=== PATIENT | male | born 1995 | race Caucasian/White ===

== ENCOUNTER 2017-04-11 11:03 | Emergency (ER) | payer OTHER, SELFPAY ==
--- NOTE | 2017-04-11 21:32 | CT ---
CT OF THE BRAIN WITHOUT CONTRAST 04/11/[address] of the brain was performed for evaluation of headache. The ventricles are normal in size w ith no shift. No intracranial bleeding, mass or sign of acute stroke was found. There is a prominent amount of mucosal thickening in sphenoid sinus. A few of the ethmoid air cells posteriorly on the left are involved as well. The findings are consistent with sinusitis, probably c hronic. The other visible paranasal sinuses are clear. The mastoid air cells are clear, though the o loulou on the right are under aerated. IMPRESSION: Findings consistent with sphenoid sinusitis. POS: HOME
== END 2017-04-11 12:39 | disposition home or self-care (01) ==
LOC: BURERS 11:03
DX: J01.90 Acute sinusitis, unspecified (principal); F17.210 Nicotine dependence, cigarettes, uncomplicated
CPT/HCPCS: 70450

== ENCOUNTER 2017-07-19 17:34 | Emergency (ER) | payer SELFPAY ==
[2017-07-19 18:00] LABS: Bilirubin Negative (Negative); Blood, Urine Negative (Negative); Clarity Clear (Clear); Glucose, Urine (Dipstick) Negative (Negative); Leukocyte Negative (Negative); Nitrite Negative (Negative); Protein, Urine (Dipstick) Negative (Neg-Trace); Specific Gravity, Urine 1.025 (1.005-1.030)
[2017-07-22 22:31] LABS: Chlamydia by PCR DETECTED (NotDetected); GC by PCR Not Detected (NotDetected)
== END 2017-07-19 18:08 | disposition home or self-care (01) ==
LOC: BURERS 17:34
DX: Z20.2 Contact with and (suspected) exposure to infections with a predominantly sexual mode of transmission (principal); F17.210 Nicotine dependence, cigarettes, uncomplicated
CPT/HCPCS: 81003; 87491; 87591; 99283

== ENCOUNTER 2017-07-24 10:22 | Emergency (ER) | payer SELFPAY ==
[2017-07-24] MEDS ORDERED: Ketorolac Tromethamine 60 MG/2 ML VIAL ONE (10:51)
== END 2017-07-24 11:05 | disposition home or self-care (01) ==
LOC: BURERS 10:22
DX: J01.90 Acute sinusitis, unspecified (principal); F17.210 Nicotine dependence, cigarettes, uncomplicated
CPT/HCPCS: 96372; J1885

== ENCOUNTER 2018-02-22 17:25 | Emergency (ER) | payer SELFPAY ==
[2018-02-22] MEDS ORDERED: Azithromycin 250 MG TAB ONE (17:43)
[2018-02-22] MEDS ORDERED: Benzonatate 100 MG CAP ONE (17:43)
== END 2018-02-22 18:00 | disposition home or self-care (01) ==
LOC: BURERS 17:25
DX: J01.90 Acute sinusitis, unspecified (principal); F17.210 Nicotine dependence, cigarettes, uncomplicated
CPT/HCPCS: 99283

== ENCOUNTER 2018-06-23 21:16 | Emergency (ER) | payer SELFPAY | END 2018-06-23 21:42 | disposition home or self-care (01) | LOC: BURERS 21:16 | DX: K04.7 Periapical abscess without sinus (principal); F17.210 Nicotine dependence, cigarettes, uncomplicated | CPT/HCPCS: 99283 ==

== ENCOUNTER 2018-07-01 22:15 | Emergency (ER) | payer SELFPAY ==
[2018-07-01] MEDS ORDERED: Morphine 10 MG/ML VIAL ONE (22:38)
[2018-07-01] MEDS ORDERED: Ondansetron ODT 4 MG TAB ONE (22:45)
== END 2018-07-01 23:22 | disposition home or self-care (01) ==
LOC: BURERS 22:15
DX: K04.7 Periapical abscess without sinus (principal); K02.9 Dental caries, unspecified; F17.210 Nicotine dependence, cigarettes, uncomplicated; Z79.899 Other long term (current) drug therapy
CPT/HCPCS: 96372; J2270; Q0162

== ENCOUNTER 2018-07-07 16:47 | Emergency (ER) | payer SELFPAY ==
[2018-07-07] MEDS ORDERED: Ondansetron HCl/PF 4 MG/2 ML Vial ONE (17:26)
[2018-07-07 17:32] LABS: #Basophils 0.1 thou/uL (0.0-0.2); #Monocytes 1.1 thou/uL (0.11-0.59); #Neutrophils 8.3 thou/uL (1.40-6.50); %Basophils 0.8 % (0.0-1.0); %Eosinophils 0.3 % (0.0-10.0); %Lymphocytes 17.6 % (21.0-51.0); %Monocytes 9.5 % (0.0-10.0); %Neutrophils 71.8 % (42.0-75.0); Hemoglobin 15.5 g/dL (14.0-18.0); Mean Corpuscular HGB CONC 35.1 g/dL (32.0-36.0); Mean Corpuscular Hemoglobin 30.7 pg (27.0-31.0); Mean Corpuscular Volume 87.4 fL (78.0-98.0); Mean Platelet Volume 8.7 fL (7.4-10.4); Platelet Count 282 thou/uL (130-400); RBC Distribution Width 11.3 % (11.5-14.5); Red Blood Cell (RBC) Count 5.05 mill/uL (4.70-6.10); White Blood Cell (WBC) Count 11.6 thou/uL (4.8-10.8)
[2018-07-07 17:44] LABS: ALT (SGPT) 39 U/L (8-55); AST (SGOT) 24 U/L (5-34); Albumin 4.6 g/dL (3.5-5.0); Alkaline Phosphatase 80 U/L (40-150); Anion Gap 13 mmol/L (10-20); BUN (Urea Nitrogen) 13 mg/dL (8.9-20.6); Bilirubin, Total 0.8 mg/dL (0.2-1.2); Calc. Creatinine Clearance 0 mL/min (70-130); Carbon Dioxide 26 mmol/L (22-29); Chloride 104 mmol/L (98-107); Estimated GFR-MDRD Greater than 90; Glucose 101 mg/dL (70-105); Lipase 14 U/L (8-78); Potassium 3.8 mmol/L (3.5-5.1); Protein, Total 7.6 g/dL (6.0-8.3); Sodium 139 mmol/L (136-145)
[2018-07-07] MEDS ORDERED: Ketorolac Tromethamine 30 MG/ML VIAL ONE (17:56)
== END 2018-07-07 18:00 | disposition home or self-care (01) ==
LOC: BURERS 16:47
DX: R11.2 Nausea with vomiting, unspecified (principal); F17.210 Nicotine dependence, cigarettes, uncomplicated
CPT/HCPCS: 80053; 83690; 85025; 96361; 96374; 96375; J1885; J2405

== ENCOUNTER 2018-09-24 16:23 | Emergency (ER) | payer SELFPAY ==
[2018-09-24] MEDS ORDERED: Ondansetron ODT 4 MG TAB ONE (16:47)
[2018-09-24] MEDS ORDERED: Dicyclomine 20 MG TAB ONE (16:47)
== END 2018-09-24 16:55 | disposition home or self-care (01) ==
LOC: BURERS 16:23
DX: R19.7 Diarrhea, unspecified (principal); R11.0 Nausea; J06.9 Acute upper respiratory infection, unspecified; F17.210 Nicotine dependence, cigarettes, uncomplicated; Z79.899 Other long term (current) drug therapy
CPT/HCPCS: 99283; Q0162

== ENCOUNTER 2018-11-12 19:36 | Emergency (ER) | payer SELFPAY ==
[2018-11-12] MEDS ORDERED: diphenhydrAMINE 50 MG/ML VIAL ONE ×2 (20:39→21:10)
[2018-11-12] MEDS ORDERED: Ketorolac Tromethamine 30 MG/ML VIAL ONE (20:39)
[2018-11-12] MEDS ORDERED: Prochlorperazine 10 MG/2 ML VIAL ONE (20:39)
[2018-11-12 20:55] LABS: #Basophils 0.1 thou/uL (0.0-0.2); #Eosinphils 0.3 thou/uL (0.0-0.7); #Lymphocytes 2.9 thou/uL (1.20-3.40); #Monocytes 0.7 thou/uL (0.11-0.59); #Neutrophils 4.6 thou/uL (1.40-6.50); %Basophils 1.5 % (0.0-1.0); %Eosinophils 3.3 % (0.0-10.0); %Lymphocytes 33.2 % (21.0-51.0); %Monocytes 8.5 % (0.0-10.0); %Neutrophils 53.5 % (42.0-75.0); Hemoglobin 15.6 g/dL (14.0-18.0); Mean Corpuscular HGB CONC 36.5 g/dL (32.0-36.0); Mean Corpuscular Hemoglobin 32.3 pg (27.0-31.0); Mean Corpuscular Volume 88.3 fL (78.0-98.0); Mean Platelet Volume 7.5 fL (7.4-10.4); Platelet Count 257 thou/uL (130-400); RBC Distribution Width 11.6 % (11.5-14.5); Red Blood Cell (RBC) Count 4.82 mill/uL (4.70-6.10); White Blood Cell (WBC) Count 8.6 thou/uL (4.8-10.8)
[2018-11-12 21:03] LABS: Anion Gap 14 mmol/L (10-20); BUN (Urea Nitrogen) 17 mg/dL (8.9-20.6); Calc. Creatinine Clearance 0 mL/min (70-130); Calcium 9.7 mg/dL (7.8-10.44); Carbon Dioxide 25 mmol/L (22-29); Chloride 105 mmol/L (98-107); Estimated GFR-MDRD 82; Glucose 92 mg/dL (70-105); Potassium 4.1 mmol/L (3.5-5.1); Sodium 140 mmol/L (136-145)
--- NOTE | 2018-11-12 21:23 | CT ---
CT BRAIN WITHOUT CONTRAST: 11/12/2018 FINDINGS: A noncontrast CT shows normal sized ventricles with no shift. No intracranial bleeding, mass, or sig n of stroke is found. There is no edema. The skull appears intact and the visible paranasal sinuses are clear. The mastoid air cells are under-aerated on the right side. There has been no adverse ch tomas in the appearance of the head since the 04/11/2017 study. IMPRESSION: No acute intracranial findings. POS: HOME
[2018-11-12] MEDS ORDERED: Fentanyl 100 MCG/2 ML VIAL ONE (21:43)
== END 2018-11-12 21:45 | disposition left against medical advice (07) ==
LOC: BURERS 19:36
DX: R51 Headache (principal); F17.210 Nicotine dependence, cigarettes, uncomplicated
CPT/HCPCS: 36415; 70450; 80048; 85025; 96361; 96374; 96375; J0780; J1200; J1885; J3010

== ENCOUNTER 2018-12-18 23:23 | Emergency (ER) | payer SELFPAY ==
[2018-12-19] MEDS ORDERED: Adacel (T-DAP) 0.5 ML SYRINGE ONE (00:01)
--- NOTE | 2018-12-19 08:09 | RAD ---
RIGHT FINGERS: DATE: 12/18/2018. FINDINGS: I presume the finger of concern is the index finger. No fracture was evident. There was some soft t issue swelling on the dorsum of the PIP joint. There may also be some swelling around the PIP joint of the third digit. The hand appeared intact, both the areas that were visible. There is probably a n old healed fracture of the 5th metatarsal. IMPRESSION: No acute fracture seen. POS: HOME
== END 2018-12-19 00:20 | disposition home or self-care (01) ==
LOC: BURERS 23:23
DX: S60.021A Contusion of right index finger without damage to nail, initial encounter (principal); F17.210 Nicotine dependence, cigarettes, uncomplicated; W22.8XXA Striking against or struck by other objects, initial encounter
CPT/HCPCS: 90471; 90715; J7620

== ENCOUNTER 2019-04-26 08:31 | Emergency (ER) | payer SELFPAY ==
[2019-04-26] MEDS ORDERED: Ibuprofen 800 MG TAB ONE (09:03)
== END 2019-04-26 09:40 | disposition home or self-care (01) ==
LOC: BURERS 08:31
DX: M54.6 Pain in thoracic spine (principal); F17.210 Nicotine dependence, cigarettes, uncomplicated
CPT/HCPCS: 99283

== ENCOUNTER 2020-12-26 12:27 | Emergency (ER) | payer SELFPAY ==
[2020-12-26] MEDS ORDERED: HYDROcodone/Acetaminophen 5/325 mg Tablet ONE (14:14)
== END 2020-12-26 14:16 | disposition home or self-care (01) ==
LOC: BURERS 12:27
DX: S60.221A Contusion of right hand, initial encounter (principal); F17.210 Nicotine dependence, cigarettes, uncomplicated; W22.8XXA Striking against or struck by other objects, initial encounter

== ENCOUNTER 2021-09-08 09:05 | Emergency (ER) | payer SELFPAY | END 2021-09-08 09:38 | disposition home or self-care (01) | LOC: BURERS 09:05 | DX: M65.4 Radial styloid tenosynovitis [de Quervain] (principal); F17.210 Nicotine dependence, cigarettes, uncomplicated ==

== ENCOUNTER 2021-10-03 15:28 | Emergency (ER) | payer OTHER, SELFPAY ==
[2021-10-03] MEDS ORDERED: Morphine 10 MG/ML VIAL ONE (16:13)
[2021-10-03] MEDS ORDERED: Ketorolac Tromethamine 30 MG/ML VIAL ONE (16:13)
[2021-10-03] MEDS ORDERED: predniSONE 20 MG TAB ONE (16:13)
== END 2021-10-03 17:38 | disposition home or self-care (01) ==
LOC: BURERS 15:28
DX: S29.011A Strain of muscle and tendon of front wall of thorax, initial encounter (principal); F17.210 Nicotine dependence, cigarettes, uncomplicated
CPT/HCPCS: 96372; 99283; J1885; J2270; J7512